=== PATIENT | female | born 1950 | race Caucasian/White ===

== ENCOUNTER 2017-10-04 02:49 | Observation (INO) ==
[2017-10-04] MEDS ORDERED: traMADol 50 MG TABLET PO PRN (08:46)
[2017-10-04] MEDS ORDERED: Furosemide 40 MG TABLET PO SCH (09:00)
[2017-10-04 09:56] LABS: Basophils # 0.1 K/mcL (0.0-0.2); Basophils % 0.7 %; Eosinophils # 0.2 K/mcL (0.0-0.6); Eosinophils % 3.5 %; Hematocrit 35.3 % (35.3-44.9); Hemoglobin 12.5 g/dL (11.5-15.4); Immature Granulocytes % 0.3 % (0-4); Lymphocytes # 1.6 K/mcL (0.6-4.6); Lymphocytes % 24.2 %; Mean Corpuscular HGB Conc 35.4 g/dL (31.6-35.5); Mean Corpuscular Hemoglobin 30.6 pg (28.0-33.3); Mean Corpuscular Volume 86.5 fL (83.0-100.0); Mean Platelet Volume 11.8 fL (9.4-12.4); Monocytes # 0.5 K/mcL (0.0-1.3); Monocytes % 7.1 %; Neutrophils # 4.4 K/mcL (1.6-8.9); Platelet Count 212 K/mcL (140-400); Red Blood Count 4.08 M/mcL (3.82-4.97); Red Cell Distribution Width 12.8 % (11.5-14.5); Segmented Neutrophils % 64.2 %
[2017-10-04 10:11] LABS: Activated Partial Thrombo Time 33.8 Seconds (26.0-36.0)
[2017-10-04 10:15] LABS: Alanine Aminotransferase 7 Units/L (7-52); Albumin 4.5 g/dL (3.5-5.7); Albumin/Globulin Ratio 1.4 (1.1-2.2); Alkaline Phosphatase 105 Units/L (34-104); Aspartate Amino Transferase 13 Units/L (13-39); BUN/Creatinine Ratio 7 (6-26); Bilirubin,Total 0.3 mg/dL (0.3-1.0); Blood Urea Nitrogen 7 mg/dL (8-23); Calcium 8.9 mg/dL (8.6-10.3); Carbon Dioxide 25 mEq/L (23-29); Chloride 97 mEq/L (98-107); Chol/HDL Ratio 2.1 (0-4.9); Cholesterol 135 mg/dL (< 200); Globulin 3.2 g/dL (2.4-3.5); Glucose 106 mg/dL (70-105); HDL Cholesterol 65 mg/dL (40-59); LDL Cholesterol,Calculated 44 mg/dL (0-99); Magnesium 1.8 mg/dL (1.6-2.6); Osmolality,Calculated 270 (280-300); Phosphorous 2.5 mg/dL (2.7-4.5); Potassium 3.5 mEq/L (3.5-5.1); Sodium 131 mEq/L (136-145); Total Protein 7.7 g/dL (6.4-8.9); Triglycerides 132 mg/dL (< 150); Troponin I < 0.03 ng/mL (< 0.04); eGFR For Non-African Americans 54 (> 60)
--- NOTE | 2017-10-04 10:20 | Internal Med History&Physical ---
Date of Encounter: 10/04/17 Time of Encounter: 08:00 Internal Medicine - H&P: HPI Chief complaint: SOB Admitted From: Hospital to Hospital Transfer Plans for Post Hospital Care: Transfer Nursing Home Facility History of present illness: Ms. Vazquez is a 66 year old female with history of lumbar radiculopathy, chronic back pain, atrial fibrillation not on anticoagulation and COPD presented to [facility] from [facility] with SOB. she was seen at [facility] and was found to have Acute CHf and was transferred to [facility] for further management. patient reports that she cannot recall why she was taken to [facility]. she repeats it was "because of hallie". she repoirts that she has had a previous stroke and her memory is not as "good as it used to be.". she does recall that she felt out of breath for the past 2 days. her symptoms has progressively worsens. she cannot recall exacerbating or alleviating factors , she denies PND, orthopnea or leg swelling however she complains of excruciating bilateral leg pain below the knee. she has not been ambulating as much as she ued to secondary to the leg pain. she denies previous blood clots in the past. she denies fever, chills, cough, falls, Syncope, chest pain, palputations, SOB, N/V/D, dysuria. Past Med Surg Social Fam HX - Past Medical History Medical history: atrial fibrillation, COPD, GERD, hypertension Additional medical history: sleep apnea. Pneumonia. acute pancreatitis. chronic gastric ulcers. chronic back pain. vitamin D def. hyponatremia Psychiatric history: no psych history - Past Surgical History Surgical History: , cholecystectomy Additional surgical history: lumbar surgery. cholecystectomy. c secton x2. appendectomy. left shoulder - Social History Smoking Status: Never smoker Smokeless Tobacco Status: No Alcohol use: none Drug use: none - Family History Mother Living Status: Still Living Father Living Status: Hx Family Cancer: Yes (lung cancer) Internal Medicine - H&P: Meds Atorvastatin Calcium [Lipitor] 20 mg PO HS 01/15/16 [History] BuPROPion SR (12 HR) [Wellbutrin SR] 150 mg PO HS 01/15/16 [History] Citalopram [CeleXA] 20 mg PO DAILY 01/15/16 [History] Estropipate [Ogen] 0.75 mg PO DAILY 01/15/16 [History] Furosemide [Lasix] 40 mg PO DAILY 01/15/16 [History] HYDROcodone/Acet 5/325 mg [[place] 5-325 mg] 1 tab PO Q6H PRN 01/15/16 [History] Metoprolol XL (24 HR) Succ [Toprol XL] 50 mg PO DAILY 01/15/16 [History] Omeprazole [PriLOSEC] 40 mg PO DAILY 01/15/16 [History] Temazepam [Restoril] 30 mg PO HS 01/15/16 [History] Valsartan [Diovan] 80 mg PO DAILY 01/15/16 [History] clonazePAM [Klonopin] 2 mg PO HS 01/15/16 [History] Adult Aspirin Regimen 81 mg PO DAILY 10/04/17 [History] Lisinopril [Zestril] 10 mg PO DAILY 10/04/17 [History] Montelukast [Singulair] 10 mg PO DAILY 10/04/17 [History] Oxybutynin Chloride [Ditropan Xl] PO DAILY 10/04/17 [History] Pregabalin [Lyrica] 100 mg PO DAILY 10/04/17 [History] Ranitidine HCl [Heartburn Relief] 150 mg PO BID 10/04/17 [History] Sulindac 150 mg PO BID 10/04/17 [History] Tramadol HCl [Ultram] 25 mg PO 5-6XD PRN 10/04/17 [History] 3 Allergy/AdvReac Type Severity Reaction Status Date / Time No Known Allergies Allergy Verified 01/15/16 12:40 All Systems PM: review of systems was performed and is negative for pertinent findings except as documented above in the HPI. - Constitutional Vitals: Temp Pulse Resp BP Pulse Ox 97.9 F 65 16 147/84 98 10/04/17 04:33 10/04/17 04:33 10/04/17 04:33 10/04/17 04:33 10/04/17 04:33 Exam: General: Patient is alert, oriented, no acute distress, overweight Head: atraumatic, normocephalic, Eye: normal appearance, PERRL, no scleral icterus, no conjunctival injection ENT: mucous membranes moist, normal external ear exam Neck: normal inspection, trachea midline, full ROM, no carotid bruits Chest: normal inspection, symmetric chest rise Respiratory: Good respiratory effort. Bilateral breath sounds are decreased without wheezing, occasional crackles at the posterior lung feild below the scapula Cardiovascular: Regular rate and rhythm. s1 and s2 No clicks, rubs, gallops, or murmors. Abdomen: Bowel sounds present normoactive x-4 quadrants. Abdomen is soft, nondistended. no Epigastric tenderness. No guarding or rebound. No organomegaly noted, obese musculoskeletal: ROM decreased in the lower extremity secondary to pain, no calf tenderness, no edema although her lower extremites are extremely tender to touch Skin: warm, dry, intact. Neuro: Alert and oriented x3. Sensation light touch intact. Cranial nerves 2- 12 is intact. Not aphasic, no focal deficits Psych: Patient's affect is normal . davis draining clear urine Internal Med - H&P Results - Labs CBC & Chem 7: 10/04/17 09:32 10/04/17 09:32 Labs: Short CBC 10/04/17 Range/Units 09:32 WBC 6.8 (4.3-11.1) K/mcL Hgb 12.5 (11.5-15.4) g/dL Hct 35.3 (35.3-44.9) % Plt Count 212 (140-400) K/mcL Neutrophils # 4.4 (1.6-8.9) K/mcL - Impressions ITS Impressions Chest X-Ray 10/04/17 08:43 IMPRESSION: 1. Slight interval worsening of reticular opacities in the lungs. Findings are favored to represent mild interstitial edema on chronic lung changes. D/ / 10/04/2017 09:50:04 Nidia Saul MD / zana Interpreting Provider: Nidia Saul MD - Assessment and plan (1) Acute exacerbation of CHF (congestive heart failure) Current Visit: Yes Status: Acute Assessment and plan: TTE CXR BNP troponin TSH, T4 lasix 40 mg IV Qday ( has hyponatremia) strict I/O fluid restriced diet lipid panel EKG stat Qualifiers: Heart failure type: unspecified Qualified Code(s): I50.9 - Heart failure, unspecified (2) HTN (hypertension) Current Visit: Yes Status: Acute Assessment and plan: continue home medications VS as per protocol Qualifiers: Hypertension type: essential hypertension Qualified Code(s): I10 - Essential (primary) hypertension (3) Atrial fibrillation Current Visit: Yes Status: Acute Assessment and plan: history of Atrial fibrillation not on AC will obtain medical records Qualifiers: Atrial fibrillation type: paroxysmal Qualified Code(s): I48.0 - Paroxysmal atrial fibrillation (4) Acute encephalopathy Current Visit: Yes Status: Acute Assessment and plan: ?secondary to metabolic encephalopathy vs medication induced vs infection induced will rule out stroke UA, TSh, t4, CT head fluid restriction for hyponatremia urine lytes (5) Hyponatremia Current Visit: Yes Status: Acute Assessment and plan: ? secondary to CHF vs medication will rule out SIADH will start fluid restriction <1L urine electrolytes and urine osmolality TSh and free t4 as she is in acute CHF will continue lasix for now monitor I/O follow BMP in the AM (6) Lumbar radiculopathy, chronic Current Visit: Yes Status: Acute Assessment and plan: s/p Status post posterior instrumented fusion of L5-S1 and right L5-S1 hemilaminectomy. MRI on february 2017 - Status post posterior instrumented fusion of L5-S1 and right L5-S1 hemilaminectomy. Multilevel degenerative disc disease as described above, grossly stable. Spinal canal narrowing, mild at L4-5. Narrowing of the right lateral recess at L4-5, contacting the right descending L5 nerve root. Foraminal narrowing, severe at right L4-5 and left L5-S1, moderate at left L4-5 and right L5-S1. kimberly get PT/OT will get lumbar Xrays continue home pain medications will get DVT study of the lower extremities (7) Hypophosphatemia Current Visit: Yes Status: Acute Assessment and plan: will replace with oral phosphorus (8) DVT prophylaxis Current Visit: Yes Status: Acute Assessment and plan: heparin 5000 units Q8H SC - Time Spent With Patient Total time spent is greater than 50% in coordination of care (as documented) at patient's floor/unit and/or counseling patient:
[2017-10-04 10:32] LABS: Thyroid Stimulating Hormone 2.158 mcIU/mL (0.340-5.600)
[2017-10-04] MEDS: *HR* HYDROcodone/Acet 5/325 mg TABLET PO PRN ×2 (12:42→20:31)
[2017-10-04] MEDS: Metoprolol XL (24 HR) Succ 50 MG TAB.ER.24H PO SCH (12:42)
[2017-10-04] MEDS: Valsartan 80 MG TABLET PO SCH (12:42)
[2017-10-04] MEDS: Aspirin Enteric Coated 81 MG Tablet PO SCH (12:42)
[2017-10-04] MEDS: Pregabalin 50 MG CAPSULE PO SCH (12:42)
[2017-10-04] MEDS: *HR* Heparin 5,000 UNIT/ML VIAL SQ SCH ×3 (13:05→20:31)
[2017-10-04 13:07] LABS: Bilirubin,Urine Negative (Negative); Blood,Urine Negative (Negative); Clarity,Urine Clear (Clear); Color,Urine Yellow (Yellow); Glucose,Urine (UA) Normal (Normal); Ketones,Urine Negative (Negative); Leukocyte Esterase,Urine Small (Negative); Nitrite,Urine Negative (Negative); PH,Urine 6.5 pH Units (5.0-8.0); Protein,Urine Negative (Neg-Trace); Specific Gravity,Urine 1.006 (1.010-1.025); Urobilinogen,Urine Normal (Normal)
[2017-10-04 13:27] LABS: Potassium,Urine 14.5 mEq/L; Sodium, Urine 16.7 mEq/L
[2017-10-04 13:31] LABS: Renal Epithelial Cells,Urine Few per hpf (None-Few); Squamous Epithelial Cell,Urine Few per lpf (None-Few)
[2017-10-04] MEDS: Famotidine 20 MG TABLET PO SCH (15:54)
[2017-10-04] MEDS ORDERED: Furosemide 40 MG/4 ML VIAL ONE (20:28)
[2017-10-04] MEDS ORDERED: BuPROPion XL (24 HR) 150 MG TABLET PO SCH (21:00)
[2017-10-04] MEDS ORDERED: clonazePAM 1 MG TABLET PO SCH (21:00)
[2017-10-05] MEDS: *HR* HYDROcodone/Acet 5/325 mg TABLET PO PRN ×2 (03:09→09:45)
[2017-10-05] MEDS: *HR* Heparin 5,000 UNIT/ML VIAL SQ SCH ×2 (05:42→14:07)
[2017-10-05 07:38] LABS: Basophils # 0.1 K/mcL (0.0-0.2); Basophils % 0.8 %; Eosinophils # 0.2 K/mcL (0.0-0.6); Eosinophils % 3.2 %; Hematocrit 31.2 % (35.3-44.9); Hemoglobin 10.7 g/dL (11.5-15.4); Immature Granulocytes % 0.3 % (0-4); Lymphocytes % 31.5 %; Mean Corpuscular HGB Conc 34.3 g/dL (31.6-35.5); Mean Corpuscular Volume 87.4 fL (83.0-100.0); Mean Platelet Volume 11.4 fL (9.4-12.4); Monocytes # 0.4 K/mcL (0.0-1.3); Monocytes % 6.9 %; Neutrophils # 3.6 K/mcL (1.6-8.9); Platelet Count 182 K/mcL (140-400); Red Blood Count 3.57 M/mcL (3.82-4.97); Red Cell Distribution Width 13.5 % (11.5-14.5); Segmented Neutrophils % 57.3 %
--- NOTE | 2017-10-05 08:02 | Electrocardiograph Report ---
[address] [place], [place] [address] Test Date: 2017-10-04 Pat Name: Miri Vazquez Department: 113 Room: 3B Gender: F [employer] Chemist: : 1950 Requested By: [id number] Order Number: [id number] Reading MD: Jamar Mcnamara Measurements Intervals [place] Rate: 62 P: 35 WY: 190 QRS: -12 QRSD: 86 T: 13 QT: 438 QTc: 443 Interpretive Statements SINUS RHYTHM Electronically Signed On 10-05-2017 8:00:08 EDT by Jamar Mcnamara
[2017-10-05 08:06] LABS: BUN/Creatinine Ratio 12 (6-26); Blood Urea Nitrogen 12 mg/dL (8-23); Calcium 8.7 mg/dL (8.6-10.3); Carbon Dioxide 25 mEq/L (23-29); Chloride 100 mEq/L (98-107); Glucose 183 mg/dL (70-105); Osmolality,Calculated 280 (280-300); Potassium 3.2 mEq/L (3.5-5.1); Sodium 133 mEq/L (136-145); eGFR For Non-African Americans 54 (> 60)
[2017-10-05] MEDS ORDERED: Furosemide 40 MG/4 ML VIAL IVP SCH (09:00)
[2017-10-05] MEDS: Famotidine 20 MG TABLET PO SCH (09:45)
[2017-10-05] MEDS: Pregabalin 50 MG CAPSULE PO SCH (09:45)
[2017-10-05] MEDS: Metoprolol XL (24 HR) Succ 50 MG TAB.ER.24H PO SCH (09:45)
[2017-10-05] MEDS: Aspirin Enteric Coated 81 MG Tablet PO SCH (09:45)
[2017-10-05] MEDS: Valsartan 80 MG TABLET PO SCH (09:45)
[2017-10-05 11:06] VITALS: BP 126/77
--- NOTE | 2017-10-05 11:41 | Physician Discharge Referral ---
- Diagnosis (1) Acute exacerbation of CHF (congestive heart failure) Priority: Primary Status: Acute (2) HTN (hypertension) Priority: Secondary Status: Acute (3) Atrial fibrillation Priority: Secondary Status: Acute (4) Acute encephalopathy Priority: Secondary Status: Acute (5) Hyponatremia Priority: Secondary Status: Acute (6) Lumbar radiculopathy, chronic Priority: Secondary Status: Acute (7) Hypophosphatemia Priority: Secondary Status: Acute (8) DVT prophylaxis Priority: Secondary Status: Acute - Respiratory Orders Smoking Cessation: Smoking cessation has been advised. For more information, call the [place] Tobacco Quit Line at 0-884-SXSP-NOW. - Diet/Nutrition Diet/Nutrition Orders: Cardiac - Activity Activity Orders: Ambulate - Services Needed Following services are medically necessary services: Home Health Aide, Physical Therapy - Transfer Medications Home Medications: Atorvastatin Calcium [Lipitor] 20 mg PO HS 01/15/16 [History] Citalopram [CeleXA] 20 mg PO DAILY 01/15/16 [History] Estropipate [Ogen] 0.75 mg PO DAILY 01/15/16 [History] Furosemide [Lasix] 40 mg PO DAILY 01/15/16 [History] HYDROcodone/Acet 5/325 mg [[place] 5-325 mg] 1 tab PO Q6H PRN 01/15/16 [History] Metoprolol XL (24 HR) Succ [Toprol XL] 50 mg PO DAILY 01/15/16 [History] Omeprazole [PriLOSEC] 40 mg PO DAILY 01/15/16 [History] Temazepam [Restoril] 30 mg PO HS 01/15/16 [History] Valsartan [Diovan] 80 mg PO DAILY 01/15/16 [History] clonazePAM [Klonopin] 2 mg PO HS 01/15/16 [History] Aspirin Enteric Coated [Aspirin EC] 81 mg PO DAILY 10/04/17 [History] BuPROPion XL (24 HR) [Wellbutrin XL] 150 mg PO DAILY 10/04/17 [History] Gabapentin [Neurontin] 300 mg PO BID 10/05/17 [History] Metoclopramide [Reglan] 10 mg PO BID 10/05/17 [History] Potassium Chloride 20 meq PO DAILY 10/05/17 [History] amLODIPine [Norvasc] 5 mg PO DAILY 10/05/17 [History] Allergies/Adverse Reactions: 3 Allergy/AdvReac Type Severity Reaction Status Date / Time No Known Allergies Allergy Verified 01/15/16 12:40 Certification: Further, I certify that my clinical findings support that this patient is homebound (i.e. absences from home require considerable and taxing effort and are for medical reasons or restorationism services or infrequently or short duration when for other reasons) because: Homebound Reason: Patient requires assistance of a person or device to safely leave home Attestation: My signature below is to certify that this patient is under my care and that I, or nurse practitioner, or a physician's optical assistant working with me, has a face-to -face encounter with this patient.
--- NOTE | 2017-10-05 11:54 | Discharge Summary ---
- NOTES TO OUTPATIENT PROVIDER Notes to Outpatient Provider: follow up with spine doctor. cardiology follow up. needs to have HRCT of chest - former smoker opacities in the lung Orders not resulted at time of discharge: Pending orders 10/05/17 07:17 Vitamin D 25 Hydroxy AM 0400 Date of Encounter: 10/05/17 Time of Encounter: 11:52 - Discharge Diagnosis (1) Acute exacerbation of CHF (congestive heart failure) Priority: Primary Status: Acute Qualifiers: Heart failure type: diastolic Qualified Code(s): I50.33 - Acute on chronic diastolic (congestive) heart failure (2) HTN (hypertension) Priority: Secondary Status: Acute Qualifiers: Hypertension type: essential hypertension Qualified Code(s): I10 - Essential (primary) hypertension (3) Atrial fibrillation Priority: Secondary Status: Acute Qualifiers: Atrial fibrillation type: paroxysmal Qualified Code(s): I48.0 - Paroxysmal atrial fibrillation (4) Acute encephalopathy Priority: Secondary Status: Acute (5) Hyponatremia Priority: Secondary Status: Acute (6) Lumbar radiculopathy, chronic Priority: Secondary Status: Acute (7) Hypophosphatemia Priority: Secondary Status: Acute (8) DVT prophylaxis Priority: Secondary Status: Acute (9) COPD (chronic obstructive pulmonary disease) Priority: Secondary Status: Acute Qualifiers: COPD type: unspecified COPD Qualified Code(s): J44.9 - Chronic obstructive pulmonary disease, unspecified Hospital course: Ms. Vazquez is a 66 year old female with history of lumbar radiculopathy, chronic back pain, atrial fibrillation not on anticoagulation and COPD presented to [facility] from [facility] with SOB. she was seen at [facility] and was found to have Acute CHf and was transferred to [facility] for further management. while in [facility] CXR was done on admission ( results below). EKG done showed NSR. her respiratory status remained stable. she was found to be slightly hyponatremic and hypochlormic which improved with fluid restriction. she was one telemetry without any acute events. CT head was done as she was confused at times which showed no acute disease. I spoke to her and her family at [facility] about atrial fibrilliation that was documented on [facility] medical records that was provided with the patient. she reports that she is unsure if she has irregular heart beat. she is unsure as to why she is not on AC but reports that she saw her associate team physician last week and she was told that she does not have heart failure and atrial fibrilliation was not mentioned. I called her PMD Dr. young for more information x 2 but was unable to reach her. I discussed with her the risk and benefits of OAC and the risks associated with having Afib not on OAC. she understands but would like to folllow up with her PMD and associate team physician as they know her history. i also discussed the need for chest CT ( as she is a former smoker, has bilateral opacities on CXR) but she would like to sign out AMA and does not want to stay in the hospital and only wants to go home. Explained to the patient the importance of disease management in the hospital and risk of signing out AMA. pt understood complication of not being cooperative with treatment management that includes but not limited to even . Patient signed AMA. Witnessed by nurse. CXRIMPRESSION: 1. Slight interval worsening of reticular opacities in the lungs. Findings are favored to represent mild interstitial edema on chronic lung changes. TTE: LVEF 60%. Normal LV chamber size, wall thickness and function. No segmental dysfunction. Mild left ventricular diastolic dysfunction. Diastolic filling pressures by doppler appears normal Normal right ventricular structure and function. Moderately dilated left atrium. No evidence of PFO with agitated saline contrast. Trileaflet aortic valve with normal function. Normal mitral valve structure and function. Normal tricuspid valve structure and function. No evidence of pulmonary hypertension. Normal pulmonic valve structure and function. The pericardium appears normal. lumbar spine: IMPRESSION: No acute abnormalities. Stable multilevel degenerative changes to the lower lumbar spine from prior CT study 08/21/2017. Stable chronic postsurgical change with orthopedic hardware to the lower lumbar spine as above. No evidence for hardware complication. Discharge discussed with: patient, family, nurse, case management - Time Spent with Patient Total time spent providing and/or coordinating discharge services: Greater than 30 minutes (40) - Discharge Medications Home Medications: Atorvastatin Calcium [Lipitor] 40 mg PO HS 01/15/16 [History] Citalopram [CeleXA] 20 mg PO DAILY 01/15/16 [History] Estropipate [Ogen] 0.75 mg PO DAILY 01/15/16 [History] Furosemide [Lasix] 40 mg PO DAILY 01/15/16 [History] HYDROcodone/Acet 5/325 mg [[place] 5-325 mg] 1 tab PO Q6H PRN 01/15/16 [History] Omeprazole [PriLOSEC] 40 mg PO DAILY 01/15/16 [History] Temazepam [Restoril] 30 mg PO HS 01/15/16 [History] Valsartan [Diovan] 80 mg PO DAILY 01/15/16 [History] Aspirin Enteric Coated [Aspirin EC] 81 mg PO DAILY 10/04/17 [History] BuPROPion XL (24 HR) [Wellbutrin XL] 150 mg PO DAILY 10/04/17 [History] Gabapentin [Neurontin] 300 mg PO BID 10/05/17 [History] Ibuprofen [Ibuprofen] 800 mg PO TID PRN 10/05/17 [History] Losartan Potassium [Cozaar] 100 mg PO DAILY 10/05/17 [History] Magnesium Oxide [Magnesium] 400 mg PO BID 10/05/17 [History] Metoclopramide [Reglan] 10 mg PO BID 10/05/17 [History] Metoprolol Tartrate [Metoprolol Tartrate] 50 mg PO BID 10/05/17 [History] Oxygen 2 l IN AD 10/05/17 [History] Potassium Chloride 20 meq PO DAILY 10/05/17 [History] Sodium Chloride [Sodium Chloride Tab] 1 gm PO DAILY 10/05/17 [History] amLODIPine [Norvasc] 5 mg PO DAILY 10/05/17 [History] diazePAM [Valium] 10 mg PO BID PRN 10/05/17 [History] Allergies/Adverse Reactions: 3 Allergy/AdvReac Type Severity Reaction Status Date / Time No Known Allergies Allergy Verified 01/15/16 12:40 Date of admission: 10/04/17 04:14 Primary care physician: Elise Young CNP Consults: 10/04/17 08:44 Consult to Occupational Therapy [CONS] Routine Comment: Evaluate, develop and implement POC Reason for Consult: historyt of stroke Does patient have active BEDREST order?: No Is patient medically & hemodynamically stable?: Yes Patient assessed for mobility or mobilized this visit?: Yes Consult to Physical Therapy [CONS] Routine Comment: Evaluate, develop and implement POC Reason for Consult: history of stroke Does patient have active BEDREST order?: No Is patient medically & hemodynamically stable?: Yes Patient assessed for mobility or mobilized this visit?: Yes - Constitutional Vitals: Temp Pulse Resp BP Pulse Ox 98.1 F 64 16 126/77 94 10/05/17 11:06 10/05/17 11:06 10/05/17 11:06 10/05/17 11:06 10/05/17 11:06 Exam: General: Patient is alert, oriented, no acute distress, overweight Head: atraumatic, normocephalic, Eye: normal appearance, PERRL, no scleral icterus, no conjunctival injection ENT: mucous membranes moist, normal external ear exam Neck: normal inspection, trachea midline, full ROM, no carotid bruits Chest: normal inspection, symmetric chest rise Respiratory: Good respiratory effort. Bilateral breath sounds are decreased without wheezing, occasional crackles at the posterior lung field below the scapula Cardiovascular: Regular rate and rhythm. s1 and s2 No clicks, rubs, gallops, or murmors. Abdomen: Bowel sounds present normoactive x-4 quadrants. Abdomen is soft, nondistended. no Epigastric tenderness. No guarding or rebound. No organomegaly noted, obese musculoskeletal: ROM decreased in the lower extremity secondary to chronic pain , no calf tenderness, no edema Skin: warm, dry, intact. Neuro: Alert and oriented x3. Sensation light touch intact. Cranial nerves 2- 12 is intact. Not aphasic, no focal deficits Psych: Patient's affect is normal . - Patient Status Disposition: Left Against Medical Advice Condition: Undetermined Functional capacity at discharge: independent ambulation Overall status at discharge: patient is not back to baseline - Discharge Instructions Follow Up With: Elise Young CNP [Primary Care Provider] - 10/11/17 9:00 am Bryant Mensah DO [Partnered Physician] - 10/07/17 1:10 pm
== END 2017-10-05 14:24 | disposition left against medical advice (07) ==
LOC: 3BNU
PROVIDERS: ADMIT Pediatrics; ATTEND Pediatrics